=== PATIENT | male | born 1935 | race Caucasian/White ===

== ENCOUNTER 2017-10-01 07:17 | Outpatient (CLI) | payer OTHER ==
[~2017-10-01 07:17] MED LIST: BENAZEPRIL HCL20 MG; LORATADINE10 MG; SIMVASTATIN40 MG; TAMSULOSIN HCL0.4 MG
== END 2017-10-01 07:22 | disposition home or self-care (01) ==
LOC: LAB 07:17
DX: M19.90 Unspecified osteoarthritis, unspecified site (principal); R97.8 Other abnormal tumor markers; Z12.11 Encounter for screening for malignant neoplasm of colon; E78.4 Other hyperlipidemia; I73.89 Other specified peripheral vascular diseases; I10 Essential (primary) hypertension

== ENCOUNTER 2018-03-25 07:19 | Outpatient (CLI) | payer OTHER | END 2018-03-25 07:24 | disposition home or self-care (01) | LOC: LAB 07:19 | DX: M13.0 Polyarthritis, unspecified (principal); I11.9 Hypertensive heart disease without heart failure; M81.0 Age-related osteoporosis without current pathological fracture; M19.90 Unspecified osteoarthritis, unspecified site; I70.0 Atherosclerosis of aorta; J44.9 Chronic obstructive pulmonary disease, unspecified; I73.9 Peripheral vascular disease, unspecified; E55.9 Vitamin D deficiency, unspecified ==

== ENCOUNTER → 2018-04-14 | Outpatient (CLI) | payer OTHER | END | disposition home or self-care (01) | LOC: NUCLEAR 07:57 | DX: I25.10 Atherosclerotic heart disease of native coronary artery without angina pectoris (principal) | CPT/HCPCS: 78452; 93017; A9500 ==

== ENCOUNTER 2018-08-09 08:42 | Emergency (ER) | payer OTHER ==
[~2018-08-09] VITALS: Ht 162.6 cm; Wt 72.6 kg
[2018-08-09] MEDS ORDERED: CLARITIN5 MG/5 ML PO (08:57)
[2018-08-09] MEDS ORDERED: TAMS0.4C PO (08:57)
[2018-08-09] MEDS ORDERED: ZOCOR20 MG PO (08:58)
== END 2018-08-09 17:58 | disposition home or self-care (01) ==
LOC: ER 08:42
DX: R53.1 Weakness (principal); R42 Dizziness and giddiness

== ENCOUNTER 2019-01-13 07:29 | Outpatient (CLI) | payer OTHER ==
[~2019-01-13 07:29] MED LIST changes: +CLARITIN5 MG/5 ML PO; +TAMS0.4C PO; +ZOCOR20 MG PO
== END 2019-01-13 07:37 | disposition home or self-care (01) ==
LOC: LAB 07:29
DX: I11.9 Hypertensive heart disease without heart failure (principal); R97.8 Other abnormal tumor markers; E78.2 Mixed hyperlipidemia; R73.01 Impaired fasting glucose; J44.9 Chronic obstructive pulmonary disease, unspecified; Z12.11 Encounter for screening for malignant neoplasm of colon; I70.0 Atherosclerosis of aorta; I12.9 Hypertensive chronic kidney disease with stage 1 through stage 4 chronic kidney disease, or unspecified chronic kidney disease; Z68.26 Body mass index [BMI] 26.0-26.9, adult; N40.0 Benign prostatic hyperplasia without lower urinary tract symptoms; I67.89 Other cerebrovascular disease

== ENCOUNTER 2019-04-14 07:25 | Outpatient (CLI) | payer OTHER | END 2019-04-14 07:48 | disposition home or self-care (01) | LOC: LAB 07:25 | DX: E55.9 Vitamin D deficiency, unspecified (principal); E78.2 Mixed hyperlipidemia; I11.9 Hypertensive heart disease without heart failure; J44.9 Chronic obstructive pulmonary disease, unspecified; I70.0 Atherosclerosis of aorta; I12.9 Hypertensive chronic kidney disease with stage 1 through stage 4 chronic kidney disease, or unspecified chronic kidney disease; Z12.11 Encounter for screening for malignant neoplasm of colon ==

== ENCOUNTER → 2019-07-14 07:21 | Outpatient (CLI) | payer OTHER | END | disposition home or self-care (01) | LOC: LAB 07:21 | DX: I70.0 Atherosclerosis of aorta (principal); Z12.11 Encounter for screening for malignant neoplasm of colon; E55.9 Vitamin D deficiency, unspecified; E78.2 Mixed hyperlipidemia; I11.9 Hypertensive heart disease without heart failure; J44.0 Chronic obstructive pulmonary disease with (acute) lower respiratory infection; I12.9 Hypertensive chronic kidney disease with stage 1 through stage 4 chronic kidney disease, or unspecified chronic kidney disease ==

== ENCOUNTER → 2019-08-11 | Emergency (ER) | payer OTHER ==
[~2019-08-11] VITALS: Ht 167.6 cm; Wt 72.6 kg
== END | disposition home or self-care (01) ==
LOC: ER 08:18
DX: H81.13 Benign paroxysmal vertigo, bilateral (principal)

== ENCOUNTER → 2020-04-05 08:53 | Outpatient (CLI) | payer OTHER | END | disposition home or self-care (01) | LOC: LAB 08:53 | PROVIDERS: ATTEND Internal Medicine | DX: I70.0 Atherosclerosis of aorta (principal); N40.0 Benign prostatic hyperplasia without lower urinary tract symptoms; Z12.11 Encounter for screening for malignant neoplasm of colon; E55.9 Vitamin D deficiency, unspecified; E78.2 Mixed hyperlipidemia; I12.9 Hypertensive chronic kidney disease with stage 1 through stage 4 chronic kidney disease, or unspecified chronic kidney disease; I73.89 Other specified peripheral vascular diseases; E04.1 Nontoxic single thyroid nodule; I67.89 Other cerebrovascular disease ==